=== PATIENT | female | born 1960 | race Caucasian/White ===

== ENCOUNTER → 2017-02-04 | Outpatient (CLI) | payer BC ==
--- NOTE | 2017-02-04 10:44 | MM ---
Reason for exam: follow-up at short interval from prior study. Last mammogram was performed 7 months ago. History: Patient is postmenopausal. Family history of breast cancer in maternal aunt at age 60. Benign cyst aspiration of the left breast. Physical Findings: Nurse did not find any significant physical abnormalities on exam. MG Diagnostic Mammo LT w CAD CC and MLO view(s) were taken of the left breast. Prior study comparison: June 23, 2016, left breast MG work up mamm w CAD LT. June 19, 2016, bilateral MG screening mammo w CAD. The breast tissue is heterogeneously dense. This may lower the sensitivity of mammography. Finding: There are typically benign vascular calcifications in the left breast. There is no discrete abnormality. These results were verbally communicated with the patient and result sheet given to the patient on 02/04/17. ASSESSMENT: Suspicious, BI-RAD 4 RECOMMENDATION: Ultrasound core biopsy of the left breast. Called Dr. Cui with mammographic findings and has scheduled an appointment for the patient for 02/05/17 at 11:[address] Osuna. PRELIMINARY REPORT CALLED AND FAXED TO DR. OSUNA ON 02/04/17 AT 300/TMP.
--- NOTE | 2017-02-04 10:45 | USB ---
Reason for exam: follow-up at short interval from prior study. History: Patient is postmenopausal. Family history of breast cancer in maternal aunt at age 60. Benign cyst aspiration of the left breast. US Breast LT Left breast ultrasound includes all four quadrants, the retroareolar region and axilla. Finding demonstrate a 0.7 x 0.9 x 0.2cm oval, too small to characterize, hypoechoic lesion at 3 o'clock, stable or smaller, and a 0.7 x 0.7 x 0.4 x oval, microlobulated, mixed, hypoechoic lesion at 10 o'clock not seen on prior views in which a biopsy is advised. These results were verbally communicated with the patient and result sheet given to the patient on 02/04/17. ASSESSMENT: Suspicious, BI-RAD 4 RECOMMENDATION: Ultrasound core biopsy of the left breast. Called Dr. Cui with mammographic findings and has scheduled an appointment for the patient for 02/05/17 at 11:[address] Osuna. PRELIMINARY REPORT CALLED AND FAXED TO DR. OSUNA ON 02/04/17 AT 300/TMP.
== END | disposition home or self-care (01) ==
LOC: RADMAMWWP 08:55
PROVIDERS: ATTEND Family Medicine
DX: N64.9 Disorder of breast, unspecified (principal); R92.8 Other abnormal and inconclusive findings on diagnostic imaging of breast
CPT/HCPCS: 76641; G0206

== ENCOUNTER → 2017-02-12 | Day surgery (SDC) | payer BC ==
[~2017-02-12] MED LIST: BACITRACIN OINT 1 EACH PACKET TOPICAL ONE; LIDOCAINE 1% INJ 10MG/ML (20 ML MDV) ONE; LIDOCAINE 1%-EPI 1:100,000 20 ML VIAL ONE
--- NOTE | 2017-02-12 08:41 | USB ---
EXAMINATION TYPE: US biopsy breast VAD LT, MG diagnostic mammo LT wo CAD DATE OF EXAM: 02/12/2017 CLINICAL HISTORY: R92.8 Previous Abnormal Mammogram. Abnormal ultrasound. TECHNIQUE: Ultrasound guided core biopsy of left breast with clip placement and follow-up two-view mammogram. COMPARISON: Mammogram and ultrasound workup February 04, 2017 and older studies. FINDINGS: The procedure of ultrasound guided core biopsy was explained to the patient. Benefits, alternatives, and risks were discussed. An informed consent was then obtained. The patient was placed in supine positioning for imaging and for the procedure. Preprocedure imaging redemonstrates a 5 x 3 mm heterogeneous oval well-defined hypoechoic lesion 10:00 position zone a of the left breast. The overlying skin was prepped and draped in usual sterile fashion. Lidocaine buffered with bicarbonate was used as anesthetic into the skin and subcutaneous tissue up to area of concern in the left breast. A jose was made with surgical scalpel. Under ultrasound guidance, a 12-gauge vacuum assisted biopsy gun device was used to obtain 3 core samples. Following this, a biopsy clip was left in lesion. The patient tolerated the procedure well without any immediate complication. The patient was kept in the radiology department for short stay after the procedure and then discharged home in stable condition. Postprocedure mammogram shows successful deployment of clip. IMPRESSION: Successful, uncomplicated ultrasound guided core biopsy of area of concern in the left breast, full pathology results to follow. Low index of suspicion noted at time of procedure. Pathology Results: Benign BREAST, LEFT, CORE BIOPSY: FIBROCYSTIC CHANGES INCLUDING CYSTS, FIBROSIS, APOCRINE METAPLASIA, AND ADENOSIS. Recommendation Follow up ultrasound of the left breast in 6 months. LORRIE
== END ==
LOC: RADUSWWP 07:19
PROVIDERS: ATTEND Surgery
DX: N60.12 Diffuse cystic mastopathy of left breast (principal); N60.82 Other benign mammary dysplasias of left breast; N60.22 Fibroadenosis of left breast; R92.8 Other abnormal and inconclusive findings on diagnostic imaging of breast
CPT/HCPCS: 88305; 19083; G0206; A4648; J2001

== ENCOUNTER → 2020-12-07 | Outpatient (CLI) | payer BC ==
--- NOTE | 2020-12-07 16:34 | XR ---
EXAMINATION TYPE: XR chest 2V DATE OF EXAM: 12/07/2020 COMPARISON: 02/06/2015 HISTORY: 59-year-old female with low-grade fever, pneumonia TECHNIQUE: PA and lateral views FINDINGS: Heart normal size. Aorta and pulmonary vasculature within normal limits. Mild diffuse interstitial pr ominence, relatively similar to prior. No pleural effusion or soheila consolidation. IMPRESSION: Mild diffuse interstitial prominence, possible bronchitis or chronic asthma. No focal infiltrate seen at this time.
== END | disposition home or self-care (01) ==
LOC: RADXRMAIN 15:26
PROVIDERS: ATTEND Family Medicine
DX: J84.9 Interstitial pulmonary disease, unspecified (principal)
CPT/HCPCS: 71046

== ENCOUNTER 2020-12-10 16:33 | Emergency (ER) | payer BC ==
--- NOTE | 2020-12-10 18:26 | ED ---
General Adult HPI <Nik Hester - Last Filed: 12/10/20 18:33> <Yusuf Delgado - Last Filed: 12/10/20 20:37> - General Stated complaint: Pneumonia - History of Present Illness Initial comments: 59-year-old female presents to the emergency department with a chief complaint of a pneumonia. Patient reports feeling symptomatically for approximately one week along with a nonproductive cough and myalgias and generalized fatigue. Her primary care physician order an x-ray today that showed a pneumonia so she decided to come to emergency department for evaluation. Denies any chest pain at this time. (Nik Hester) - Related Data Home Medications Medication Instructions Recorded Confirmed hydroCHLOROthiazide 25 mg PO 07/06/15 07/06/15 lisinopriL [Zestril] 10 mg PO DAILY 07/06/15 07/06/15 Allergies Allergy/AdvReac Type Severity Reaction Status Date / Time No Known Allergies Allergy Verified 12/10/20 18:26 Review of Systems ROS Other: All systems not noted in ROS Statement are negative. <Nik Hester - Last Filed: 12/10/20 18:33> ROS Other: All systems not noted in ROS Statement are negative. <Yusuf Delgado - Last Filed: 12/10/20 20:37> ROS Statement: Those systems with pertinent positive or pertinent negative responses have been documented in the HPI. Past Medical History Past Medical History: Hypertension Additional Past Medical History / Comment(s): heart valve replacement History of Any Multi-Drug Resistant Organisms: None Reported Past Surgical History: Heart Catheterization, Orthopedic Surgery, Tonsillectomy, Tubal Ligation Additional Past Surgical History / Comment(s): right foot Past Psychological History: No Psychological Hx Reported Past Alcohol Use History: None Reported Past Drug Use History: None Reported <Nik Hester - Last Filed: 12/10/20 18:33> General Exam General appearance: alert, in no apparent distress Respiratory exam: Present: rales (Mild diffuse crackles bilaterally). Absent: respiratory distress, wheezes, rhonchi, stridor, accessory muscle use Cardiovascular Exam: Present: regular rate, normal rhythm, normal heart sounds <Nik Hester - Last Filed: 12/10/20 18:33> Course Vital Signs 12/10/20 12/10/20 12/10/20 18:21 19:52 19:54 Temperature 101.4 F H 99.1 F Pulse Rate 91 81 Respiratory 20 18 19 Rate Blood Pressure 114/71 139/81 O2 Sat by Pulse 98 97 Oximetry Medical Decision Making <Yusuf Delgado - Last Filed: 12/10/20 20:37> - Medical Decision Making Chest x-ray shows bilateral bibasilar infiltrates consistent with COVID. Patient is getting monoclonal [facility] emergency department will be discharged home. Patient has been instructed to come back if there is any worsening symptoms or any difficulty breathing (Yusuf Delgado) - Lab Data Lab Results 12/10/20 Range/Units 18:27 Coronavirus (PCR) Detected A (Not Detectd) Disposition <Nik Hester - Last Filed: 12/10/20 18:33> Is patient prescribed a controlled substance at d/c from ED?: No Time of Disposition: 20:37 <Yusuf Delgado - Last Filed: 12/10/20 20:37> Clinical Impression: Pneumonia due to COVID-19 virus Disposition: HOME SELF-CARE Instructions (If sedation given, give patient instructions): Coronavirus Disease 2019 (COVID-19) Referrals: Ean Cui MD [REFERRING] - 1-2 days
[2020-12-10] MEDS ORDERED: IBUPROFEN 600 MG TAB PO STA (19:24)
[2020-12-10] MEDS ORDERED: ACETAMINOPHEN TAB 500 MG TAB PO STA (19:25)
[2020-12-10] MEDS ORDERED: ONDANSETRON 4 MG/2 ML VIAL IVP STA (19:39)
[2020-12-10] MEDS ORDERED: BAMLANIVIMAB (EUA) 700 MG, ETESEVIMAB (EUA) 1,400 MG in SODIUM CHLORIDE 0.9% 50 ML IVPB ONE (20:15)
--- NOTE | 2020-12-10 20:21 | XR ---
EXAMINATION TYPE: XR chest 1V portable DATE OF EXAM: 12/10/2020 COMPARISON: 02/06/2015. HISTORY: Shortness of breath and fever. TECHNIQUE: Single frontal view of the chest is obtained. FINDINGS: There is mild right basilar streaky opacities. No pleural effusion, or pneumothorax seen. The cardiac silhouette size is within normal limits. The osseous structures are intact. IMPRESSION: Bibasilar opacities concerning for infiltrates.
[2020-12-10] MEDS ORDERED: SODIUM CHLORIDE 0.9% 50 ML IVPB ONE (21:15)
[2020-12-10 22:35] VITALS: BP 105/60; PULSE 68; RESP 17; TEMP 98.9
== END 2020-12-10 22:43 | disposition home or self-care (01) ==
LOC: EC 16:33
DX: U07.1 COVID-19 (principal); J12.82 Pneumonia due to coronavirus disease 2019; I10 Essential (primary) hypertension
CPT/HCPCS: 87635; 71045; 99283; 96365; 96375; J2405; Q0245

== ENCOUNTER 2021-01-29 07:25 | Day surgery (SDC) | payer BC ==
[2021-01-25 12:43] VITALS: BMI 25.0
[2021-01-29] MEDS ORDERED: LIDOCAINE 1% (10MG/ML) FOR IV START INTRADERMA PRN (07:38)
[2021-01-29] MEDS ORDERED: LACTATED RINGERS 1,000 ML IV SCH (07:38)
[2021-01-29 07:53] VITALS: RESP 16; TEMP 98.5
[2021-01-29] MEDS ORDERED: PROPOFOL 10 MG/ML 20 ML VIAL IV ONE (08:43)
[2021-01-29] MEDS ORDERED: LIDOCAINE 1% INJ 10MG/ML (20 ML MDV) ONE (08:43)
--- NOTE | 2021-01-29 08:47 | P.GSHP ---
History of Present Illness H&P Date: 01/29/21 Chief Complaint: Colon cancer screening, family history and mother Patient here today for colonoscopy. Last colonoscopy 5.5 years ago. Patient's prep at that time was somewhat poor. She is having no issues. Family history of colon cancer in her mother Past Medical History Past Medical History: Deep Vein Thrombosis (DVT), Eye Disorder, Hypertension, Mitral Valve Prolapse (MVP), Osteoarthritis (OA) Additional Past Medical History / Comment(s): Hx left leg DVT. Early stage Glaucoma. Hx CoVid in early December 2020, recovered. History of Any Multi-Drug Resistant Organisms: None Reported Past Surgical History: Orthopedic Surgery, Tonsillectomy, Tubal Ligation Additional Past Surgical History / Comment(s): Right foot surgery. Past Anesthesia/Blood Transfusion Reactions: No Reported Reaction Past Psychological History: No Psychological Hx Reported Smoking Status: Never smoker Past Alcohol Use History: None Reported Past Drug Use History: None Reported - Past Family History Father Family Medical History: Deep Vein Thrombosis (DVT) Mother Family Medical History: Cancer Additional Family Medical History / Comment(s): Colon Cancer and Basal Cell Carcinoma. Medications and Allergies Home Medications Medication Instructions Recorded Confirmed Type Losartan Potassium 100 mg PO QAM 01/25/21 01/29/21 History Allergies Allergy/AdvReac Type Severity Reaction Status Date / Time No Known Allergies Allergy Verified 01/29/21 07:53 Surgical - Exam Vital Signs Temp Pulse Resp BP Pulse Ox 98.5 F 76 16 152/94 100 01/29/21 07:46 01/29/21 07:46 01/29/21 07:46 01/29/21 07:46 01/29/21 07:46 Physical exam: General: Well-developed, well-nourished HEENT: Normocephalic, sclerae nonicteric Abdomen: Nontender, nondistended Extremities: No edema Neuro: Alert and oriented Assessment and Plan (1) Colon cancer screening Narrative/Plan: Will proceed with colonoscopy Current Visit: Yes Status: Acute Code(s): Z12.11 - ENCOUNTER FOR SCREENING FOR MALIGNANT NEOPLASM OF COLON SNOMED Code(s): 999590701
--- NOTE | 2021-01-29 09:14 | P.PCN ---
Date of Procedure: 01/29/21 Procedure(s) Performed: PREOPERATIVE DIAGNOSIS: Colon cancer screening, family history of colon cancer in mother POSTOPERATIVE DIAGNOSIS: Mild diverticulosis PROCEDURE: Colonoscopy ANESTHESIA: MAC SURGEON: Wilman Saleem M.D. SPECIMENS: None ENDOSCOPIC PROCEDURE: The patient was placed on the endoscopy table in the left decubitus position. The Olympus colonoscope was inserted into the anus and passed under direct visualization to the base of the cecum. The appendiceal orifice was visualized. From that point the scope was slowly withdrawn inspecting all surfaces carefully. There were no neoplastic inflammatory or polypoid lesions throughout the cecum, ascending, transverse, descending, sigmoid and rectum. There was mild diverticulosis noted. The patient had a good prep at this time. The patient's colon was quite tortuous however. There were minimal inflammatory changes seen throughout the sigmoid colon of unknown etiology. Digital rectal examination was normal. The patient was taken to the recovery room in stable condition per anesthesia guidelines. RECOMMENDATIONS: Resume Diet. Follow-up colonoscopy 5 years.
[2021-01-29 09:27] VITALS: BP 120/80; PULSE 78
== END 2021-01-29 09:50 | disposition home or self-care (01) ==
LOC: ORWHC2ENDO 07:25
PROVIDERS: ATTEND Surgery
DX: Z12.11 Encounter for screening for malignant neoplasm of colon (principal); K57.30 Diverticulosis of large intestine without perforation or abscess without bleeding; I10 Essential (primary) hypertension; I34.1 Nonrheumatic mitral (valve) prolapse; Z80.0 Family history of malignant neoplasm of digestive organs; M19.90 Unspecified osteoarthritis, unspecified site; Z80.8 Family history of malignant neoplasm of other organs or systems; H40.9 Unspecified glaucoma; Z86.16 Personal history of COVID-19; Z90.89 Acquired absence of other organs; Z98.51 Tubal ligation status; Z82.49 Family history of ischemic heart disease and other diseases of the circulatory system; Q43.8 Other specified congenital malformations of intestine; Z86.718 Personal history of other venous thrombosis and embolism; Z79.899 Other long term (current) drug therapy
CPT/HCPCS: J2001; J2704; G0105

== ENCOUNTER → 2021-07-04 | Outpatient (CLI) | payer BC ==
--- NOTE | 2021-07-04 12:42 | XR ---
EXAMINATION TYPE: XR chest 2V DATE OF EXAM: 07/04/2021 COMPARISON: NONE HISTORY: Shortness of breath TECHNIQUE: Frontal and lateral views of the chest are obtained. FINDINGS: Scattered senescent parenchymal changes noted. Hyperinflation compatible with COPD. No evidence for infiltrate. No evidence for atelectasis. Heart size is stable. Mediastinal structures are stable and grossly unremarkable. No evidence for hilar prominence. Degenerative changes dorsal spine. IMPRESSION: 1. No evidence for acute pulmonary disease.
== END | disposition home or self-care (01) ==
LOC: RADXRMAIN 11:49
PROVIDERS: ATTEND Family Medicine
DX: R06.02 Shortness of breath (principal)
CPT/HCPCS: 71046

== ENCOUNTER 2021-09-18 10:14 | Day surgery (SDC) | payer BC ==
[~2021-09-18 10:14] MED LIST changes: +ALPRAZolam 0.25 MG TAB PO PRN; +ALPRAZolam 0.5 MG TAB PO PRN; +ASPIRIN 325 MG TAB PO STA; +ATORVASTATIN 80 MG TAB PO STA; -BACITRACIN OINT 1 EACH PACKET TOPICAL ONE; -LIDOCAINE 1% INJ 10MG/ML (20 ML MDV) ONE; -LIDOCAINE 1%-EPI 1:100,000 20 ML VIAL ONE; +NITROGLYCERIN SL TABS 0.4 MG TAB SUBLINGUAL PRN; +SODIUM CHLORIDE 0.9% 1,000 ML in EMPTY BAG 1 BAG IV SCH
[2021-09-18] MEDS ORDERED: ASPIRIN 325 MG TAB PO ONE (10:50)
[2021-09-18 10:55] VITALS: RESP 18; TEMP 98.1
[2021-09-18 11:04] LABS: Basophils # (A) 0.1 k/uL (0-0.2); Basophils % (A) 1 %; Eosinophils # (A) 0.1 k/uL (0-0.7); Eosinophils % (A) 3 %; HGB 15.1 gm/dL (11.4-16.0); Lymphocytes # (A) 1.9 k/uL (1.0-4.8); Lymphocytes % (A) 38 %; MCH 30.6 pg (25.0-35.0); MCHC 33.6 g/dL (31.0-37.0); MCV 91.1 fL (80.0-100.0); Monocytes # (A) 0.3 k/uL (0-1.0); Monocytes % (A) 6 %; Neutrophils # (A) 2.6 k/uL (1.3-7.7); Neutrophils % (A) 50 %; Platelet Count 196 k/uL (150-450); RBC 4.94 m/uL (3.80-5.40); WBC 5.1 k/uL (3.8-10.6)
[2021-09-18] MEDS ORDERED: LIDOCAINE 1% INJ 10MG/ML (20 ML MDV) ONE (11:09)
[2021-09-18] MEDS ORDERED: HEPARIN SODIUM 1,000 UN/ML (10ML VL) ONE (11:09)
[2021-09-18] MEDS ORDERED: fentaNYL (PF) 50 MCG/ML 2 ML AMP ONE (11:09)
[2021-09-18] MEDS ORDERED: VERAPAMIL 2.5 MG/ML 2 ML AMP ONE (11:09)
[2021-09-18] MEDS ORDERED: fentaNYL (PF) 50 MCG/ML 2 ML AMP IVP ONE (11:49)
[2021-09-18] MEDS ORDERED: LIDOCAINE 1% INJ 10MG/ML (20 ML MDV) SQ ONE (11:53)
[2021-09-18] MEDS ORDERED: VERAPAMIL SYRINGE (5 MG/10 ML) INTRAARTER ONE (11:55)
[2021-09-18] MEDS ORDERED: HEPARIN SODIUM 1,000 UN/ML (10ML VL) IVP ONE (12:00)
[2021-09-18] MEDS ORDERED: IOPAMIDOL-370 100ML BTL INJ ONE (12:04)
[2021-09-18] MEDS ORDERED: RX INFO: IV CONTRAST WAS GIVEN 1 EACH MISC MISCELLANE PRN (12:19)
[2021-09-18] MEDS ORDERED: SODIUM CHLORIDE 0.9% 1,000 ML IV SCH (12:30)
--- NOTE | 2021-09-18 12:51 | CC ---
CARDIAC CATHETERIZATION REPORT Mrs. Feliciano is a 60-year-old female known history of hypertension who has been complaining of episodes of chest discomfort and dyspnea on exertion. She underwent stress test that revealed evidence of anterior wall ischemia. In view of that, recommendation made regarding cardiac catheterization. The procedure as well as the risks and the complications were discussed with the patient who is in full understanding and agreement. PROCEDURE DESCRIPTION: Patient was brought to the labeling specialist in a fasting semi-sedated state after receiving fentanyl and Benadryl and achieving moderate conscious sedated state, using Xylocaine anesthesia and Seldinger technique, a 6-Ghanaian sheath was introduced in the right radial artery. Selective right and left coronary angiography performed using 5-Ghanaian 3.5 bend right and left Kenneth catheter. Multiple views of the coronary arteries including hemiaxial views obtained. Following that, the left Kenneth was used to cross the aortic valve and left ventricular end-diastolic pressure was calculated. Following that, catheter and sheath were removed. Hemostasis was obtained with deployment of TR band. There was no immediate complication. Patient was returned to her room in stable condition. Of note, the patient received 4000 units of intravenous heparin as well as intra-arterial verapamil. FINDINGS: LEFT MAIN: This is a short-sized vessel bifurcating into left circumflex, left main anterior descending coronary artery. Left main coronary artery has no evidence of high- grade stenosis. LEFT ANTERIOR DESCENDING ARTERY: This is a large-sized vessel reaching to the apex with a wraparound the apex segment giving rise to a diagonal branch in mid segment. The left anterior descending coronary artery as well as branches have no evidence of obstructive coronary artery disease. LEFT CIRCUMFLEX: This is a large nondominant vessel giving rise to a large obtuse marginal branch. The left circumflex as well as branches have no evidence of obstructive coronary artery disease. RIGHT CORONARY ARTERY: This is a dominant vessel bifurcating distally into the posterolateral segment and branches. The right coronary artery as well as branches have no evidence of obstructive coronary artery disease. LEFT VENTRICULOGRAM: Left ventriculogram was not performed. HEMODYNAMICS: There was no gradient across the aortic valve. The left ventricular end-diastolic pressure was 10-14 mmHg. CONCLUSION: 1. Normal coronary arteries. 2. Normal left ventricular end-diastolic pressure. RECOMMENDATIONS: In view of findings and anatomy, I recommended continue medical therapy with aggressive coronary risk factor modifications that have been initiated. Those findings and recommendations were discussed with the patient and her family, and they are in full understanding and agreement. MMYARON / IJN: [id number] /
[2021-09-18] MEDS ORDERED: BAMLANIVIMAB (EUA) 700 MG, ETESEVIMAB (EUA) 1,400 MG in SODIUM CHLORIDE 0.9% 100 ML IVPB ONE ×2 (16:00→17:00)
[2021-09-18 16:04] VITALS: BP 138/86; PULSE 66
[2021-09-19] MEDS ORDERED: NON FORMULARY DRUG (Losartan Potassium [Losartan Potassium] 100 MG Tablet) PO SCH (09:00)
[2021-09-19] MEDS ORDERED: ASPIRIN 81 MG PO SCH (09:00)
== END 2021-09-18 16:08 | disposition home or self-care (01) ==
LOC: CATHCVL 10:14
PROVIDERS: ATTEND Internal Medicine Interventional Cardiology
DX: I10 Essential (primary) hypertension (principal); R06.09 Other forms of dyspnea; R07.9 Chest pain, unspecified; Z20.822 Contact with and (suspected) exposure to COVID-19
CPT/HCPCS: 93458; 85025; 87635; C1894; C1769; J2001; J3010; J1644; Q9967

== ENCOUNTER → 2024-04-06 | Outpatient (CLI) | payer MEDICARE ==
--- NOTE | 2024-04-06 12:51 | XR ---
EXAMINATION TYPE: XR sternum DATE OF EXAM: 04/06/2024 COMPARISON: NONE HISTORY: R22.2 SWELLING, MASS AND LUMP TECHNIQUE: 2 views of the sternum submitted. FINDINGS: No evidence for sternal fracture or mass. No substernal increased density seen. IMPRESSION: No distinct mass appreciated or bony destructive process. If symptoms persist CT of the c hest is recommended.
== END | disposition home or self-care (01) ==
LOC: RADXRMAIN 12:21
PROVIDERS: ATTEND Family Medicine
DX: R22.2 Localized swelling, mass and lump, trunk (principal)
CPT/HCPCS: 71120

== ENCOUNTER → 2024-05-06 | Outpatient (CLI) | payer MEDICARE ==
--- NOTE | 2024-05-06 18:16 | NM ---
EXAMINATION TYPE: NM parathyroid w/ SPECT DATE OF EXAM: 05/06/2024 COMPARISON: NONE CLINICAL INDICATION: Female, 63 years old with history of E21.0 PRIMARY HYPERPARATHYROIDISM; TECHNIQUE: Following administration of 25.7 mCi Tc99m Sestamibi. Anterior projection images of the neck and ches t were obtained 10 minutes and 3 hours post injection. SPECT images of the neck and chest were obtai brian and reconstructed in three axes. FINDINGS: Thyroid tracer washout: Delayed images demonstrate complete to near complete tracer washout from the thyroid. Parathyroid uptake: None. The two-hour delayed images do not demonstrate any focal abnormal persisten t uptake in the region of the parathyroid glands to suggest parathyroid adenoma. Normal uptake: There is physiological tracer uptake in the myocardium, liver, salivary glands, and th yroid gland. The left lobe of the thyroid gland is asymmetrically larger. IMPRESSION: No scintigraphic evidence for parathyroid adenoma.
== END | disposition home or self-care (01) ==
LOC: RADNMMAIN 07:43
PROVIDERS: ATTEND Family Medicine
DX: E21.0 Primary hyperparathyroidism (principal)
CPT/HCPCS: 78071; A9500

== ENCOUNTER → 2024-09-02 | Outpatient (CLI) | payer MEDICARE ==
--- NOTE | 2024-09-02 16:39 | US ---
EXAMINATION TYPE: US thyroid st tissue head/neck DATE OF EXAM: 09/02/2024 COMPARISON: NONE CLINICAL INDICATION: Female, 63 years old with history of E21.0 PRIMARY HYPERPARATHYROIDISM; TECHNIQUE: Grayscale and color Doppler imaging of the thyroid gland. FINDINGS: GLAND SIZE: Right Lobe: 5.5 x 1.6 x 2.0 cm Overall Parenchyma: heterogeneous Left Lobe: 4.8 x 1.5 x 1.7 cm Overall Parenchyma: heterogeneous Isthmus Thickness: 0.3 cm NODULES RIGHT: # of nodules measured on right: 0 LEFT: # of nodules measured on left: 1 1. 0.5 X 0.4 x 0.6 cm, upper lateral, Prior size: No prior TIRADS Score: 4 TIRADS Category 4: Composition: Solid or almost completely solid (2 points). Echogenicity: Hyperechoic or isoechoic (1 point). Shape: Wider than tall (0 points). Margin: Smooth (0 points). Echogenic foci: Macrocalcifications (1 point) Recommendation: If >1.5cm: FNA; If >1cm: Follow up at 1,2, 3,5 years ISTHMUS: # of nodules measured in the isthmus: 0 Bilateral neck scanned, no evidence of lymphadenopathy. IMPRESSION: 1. Suspected calcified left thyroid nodule. No evidence suspicious nodules. 2. Nodules 3. Heterogenous thyroid gland correlate with serum markers for thyroiditis. [facility], , 09/02/2024 4:37 PM
== END | disposition home or self-care (01) ==
LOC: RADUSWWP 16:02
PROVIDERS: ATTEND Internal Medicine
DX: E21.0 Primary hyperparathyroidism (principal); E04.2 Nontoxic multinodular goiter
CPT/HCPCS: 76536